=== PATIENT | male | born 1995 | race Two or more races ===

== ENCOUNTER 2018-03-10 09:51 | Emergency (ER) | payer SELFPAY ==
[2018-03-10 09:57] VITALS: BMI 27.3
[2018-03-10] MEDS ORDERED: NS 1000 ML 1,000 ML IV ONE (10:06)
[2018-03-10] MEDS ORDERED: NS 1000 ML 1,000 ML ONE (10:06)
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
[2018-03-10] MEDS ORDERED: ADACEL TDaP IM ONE ×2 (10:31→10:39)
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
--- NOTE | 2018-03-10 11:53 | CT ---
HISTORY: Head and maxillofacial trauma, facial pain Study: Maxillofacial CT without contrast Comparison: None Technique: Axial noncontrast images with coronal and sagittal reformats. Dose reduction procedures we re used with mA/kv adjusted for body size. Findings: There is no evidence for mandibular, maxillofacial, nasal, or orbital fracture. The globes are intact . The retro-orbital soft tissues are normal. The sinuses are clear with the exception of multiple annabel ateral maxillary sinus retention cysts. IMPRESSION: No fracture identified Reported By:
--- NOTE | 2018-03-10 11:54 | CT ---
CT cervical spine without contrast Indication: Trauma with back pain Technique: Helical CT images of the cervical spine were obtained without IV contrast. Reformatted nava ges in the coronal and sagittal planes were also generated for review. Comparison: None Findings: Vertebral body heights and alignment are normal. No acute fracture or subluxation is identi fied. There is no prevertebral soft tissue swelling. No significant degenerative changes are apprecia va. The visualized lung apices are clear. Impression: No acute fracture or subluxation of the cervical spine. Reported By:
[2018-03-10] MEDS ORDERED: TORADOL 60 MG VIAL IVP ONE (12:01)
[2018-03-10 13:21] VITALS: BP 139/69
[2018-03-10] MEDS ORDERED: TYLENOL 500 MG TAB EXTRA STRENGTH PO ONE (13:35)
== END 2018-03-10 13:53 | disposition home or self-care (01) ==
LOC: ER 09:59
PROC: 0WQ0XZZ Repair Head, External Approach (ICD-10-PCS; principal; 2018-03-10)
DX: S01.01XA Laceration without foreign body of scalp, initial encounter (principal); S00.83XA Contusion of other part of head, initial encounter; S02.119A Unspecified fracture of occiput, initial encounter for closed fracture; S16.1XXA Strain of muscle, fascia and tendon at neck level, initial encounter; G44.319 Acute post-traumatic headache, not intractable; Y04.0XXA Assault by unarmed brawl or fight, initial encounter
CPT/HCPCS: 70450; 70486; 72125; 90471; 96365; 99282; 99283